=== PATIENT | female | born 1975 | race Two or more races ===

== ENCOUNTER 2022-12-04 13:09 | Emergency (ER) | payer BC, OTHER ==
[~2022-12-04] VITALS: Ht 162.6 cm; Wt 70.0 kg
[2022-12-04 13:09] VITALS: BP 119/69; TEMP 97.9
[2022-12-04 14:22] VITALS: PULSE 81; RESP 20; O2SAT 100
[2022-12-04] MEDS ORDERED: PROCHLORPERAZINE EDISYLATE 5 MG/ML 2ML VIAL IM ONE (14:45)
[2022-12-04] MEDS ORDERED: DexAMETHasone SOD PHOS 10MG/1ML VIAL INJ IM ONE (14:45)
[2022-12-04] MEDS ORDERED: HYDROcodone-ACET 5/325MG TAB PO ONE (14:45)
[2022-12-04] MEDS ORDERED: KETOROLAC TROMETH 60MG/2ML VIAL IM ONE (14:45)
[2022-12-04] MEDS ORDERED: HYDR-4902 PO (14:51)
[2022-12-04] MEDS ORDERED: CYCL-611 PO (14:51)
[2022-12-04] MEDS ORDERED: ZOFR4T PO (14:51)
== END 2022-12-04 15:12 | disposition home or self-care (01) ==
LOC: ER 13:09
DX: G43.909 Migraine, unspecified, not intractable, without status migrainosus (principal); M50.323 Other cervical disc degeneration at C6-C7 level; M62.838 Other muscle spasm
CPT/HCPCS: 70450; 72125; 96372; 99285; J0780; J1100; J1885